=== PATIENT | male | born 1995 ===

== ENCOUNTER 2016-09-19 14:56 | Emergency (ER) | payer OTHER ==
[2016-09-19 15:04] VITALS: BMI 24.6
[2016-09-19 15:05] VITALS: BP 102/65; PULSE 68; RESP 20; TEMP 98; O2SAT 99
--- NOTE | 2016-09-19 15:45 | C.PDOC ---
History Of Present Illness 20 yo male BIBA for evaluation of diffuse Right side pain gradually developed for past 2 days after had Abilify injection. Pt reports, ' received injection to Right side of my body and pain gradually started in my Right arm and Right leg". Otherwise, pt denies fever, chills, skin changes around injection site. headache, dizziness, stiffness or weakness to Right arm and leg, denies CP, SOB , dyspnea, abd. pain, N/V, back pain, denies weakness, sensory or vascular deficits to Right arm and leg. At the time of evaluation, appears appropriate, not in any apparent distress. Pt admits, was seen yesterday at [facility] and had psychiatric evaluation, discharge with outpatient f/u with his psychiatrist. Pt gave me his psych phone number [phone]. I discussed case with behavioral health case manager, psych was not available at time. Pt has PMHx of schizophrenia, personality disorder, anger problem, (+) delusional. manager union is aware of pt's symptoms of Right side pain after the injection of Abilify. She reports, " pt called me yesterday and told me was seen at [facility] due to Right arm and Right leg pain developed after injection. I told him to return to partial care as scheduled yesterday and today- not compliant". As per behavioral health case manager, prior to start of Abilify injection, pt was place on oral Abilify for 10 days and tolerated well, no side effect noted. Pt has hx of medication non- compliance and agreed to injection form of Abilify.As per discussion with behavioral health case manager, pt is ok for discharge and outpt f/u now at partial care. Time Seen by Provider: 09/19/16 15:09 Chief Complaint (Nursing): Hip Pain History Per: Patient History/Exam Limitations: no limitations Onset/Duration Of Symptoms: Days (2) Current Symptoms Are (Timing): Still Present Past Medical History Reviewed: Historical Data, Nursing Documentation, Vital Signs Vital Signs: Last Vital Signs Temp 98.0 F 09/19/16 15:03 Pulse 68 09/19/16 15:03 Resp 20 09/19/16 15:03 BP 102/65 09/19/16 15:03 Pulse Ox 99 09/19/16 16:01 - Medical History PMH: Asthma, Schizophrenia Family History: States: No Known Family Hx - Social History Hx Alcohol Use: No Hx Substance Use: No - Immunization History Hx Tetanus Toxoid Vaccination: No Hx Influenza Vaccination: No Hx Pneumococcal Vaccination: No Review Of Systems Except As Marked, All Systems Reviewed And Found Negative. Constitutional: Positive for: Other ((+) Diffuse right sided pain). Negative for: Fever, Chills Eyes: Negative for: Vision Change ENT: Negative for: Ear Discharge Cardiovascular: Negative for: Chest Pain, Edema, Light Headedness Respiratory: Negative for: Cough, Shortness of Breath, Wheezing Gastrointestinal: Negative for: Nausea, Vomiting, Abdominal Pain Genitourinary: Negative for: Dysuria, Incontinence Musculoskeletal: Negative for: Back Pain Neurological: Negative for: Weakness, Numbness, Altered Mental Status, Headache , Dizziness Physical Exam - Physical Exam Appears: Well, Non-toxic, No Acute Distress Skin: Warm, No Rash, No Ecchymosis Head: Normacephalic Eye(s): bilateral: PERRL Nose: No Discharge Oral Mucosa: Moist, No Drooling Tongue: Normal Appearing Lips: Normal Appearing Throat: No Erythema, No Exudate, No Drooling, Other (uvula midline, no edema.) Neck: Supple Chest: Symmetrical Cardiovascular: Rhythm Regular Respiratory: No Decreased Breath Sounds, No Accessory Muscle Use, No Stridor, No Wheezing Gastrointestinal/Abdominal: Soft, No Tenderness, No Distention, No Guarding Back: No CVA Tenderness Extremity: No Pedal Edema, No Deformity Neurological/Psych: Normal Speech ED Course And Treatment O2 Sat by Pulse Oximetry: 99 Pulse Ox Interpretation: Normal Progress Note: On re-eavluation, pt is afebrile, hemodynamicaly stable. no- toxic. Appropriate, denies suicidal ideation or attempts. neurologicaly intact. Case discussed with ED attending and discharge with outpt F/U -psychiatrist recommend at this time. Discussed with patient , agrees with outpt f/u. Stable for discharge now. Medical Decision Making Medical Decision Making: PLAN: * Motrin PO Disposition Counseled Patient/Family Regarding: Diagnosis, Need For Followup - Disposition Referrals: [facility] [Outside] Disposition: HOME/ ROUTINE Disposition Time: 15:43 Condition: STABLE Additional Instructions: FOLLOW UP WITH YOUR PSYCHIATRIST IN 1-2 DAYS FOR RE-EVALUATION. RETURN TO ED IF ANY WORSENING OR NEW CHANGES. Instructions: Schizophrenia (ED), Leg Pain (ED), Arm Pain (ED) - Clinical Impression Clinical Impression: Right arm pain, Right leg pain, Schizophrenia - PA / PUBLIC HEALTH DOCTOR / Resident Statement MD/DO has reviewed & agrees with the documentation as recorded. - Scribe Statement The provider has reviewed the documentation as recorded by the Scribe Qing Singh All medical record entries made by the Scribe were at my direction and personally dictated by me. I have reviewed the chart and agree that the record accurately reflects my personal performance of the history, physical exam, medical decision making, and the department course for this patient. I have also personally directed, reviewed, and agree with the discharge instructions and disposition.
== END 2016-09-19 15:55 | disposition home or self-care (01) ==
LOC: C.ER 14:56
DX: M79.601 Pain in right arm (principal); M79.604 Pain in right leg; F20.9 Schizophrenia, unspecified

== ENCOUNTER 2016-12-17 18:07 | Emergency (ER) | payer OTHER ==
[2016-12-17 18:07] VITALS: BMI 24.6
[2016-12-17 18:16] VITALS: TEMP 97.4
[2016-12-17] MEDS ORDERED: Lidocaine 5% Patch TD STA (18:49)
[2016-12-17] MEDS ORDERED: Lidocaine 5% Patch TD ONE (18:54)
--- NOTE | 2016-12-17 19:02 | C.PDOC ---
History Of Present Illness 21 year old male presents to the ED with complaints of left upper back pain that is exacerbated by movement beginning when he awoke this morning. Patient states he used ibuprofen and unknown muscle relaxer but pain persists. He notes he was at the gym yesterday doing heavy lifting and working on back and arms. Patient states pain is non-radiating and denies SOB, chest pain. Time Seen by Provider: 12/17/16 18:41 Chief Complaint (Nursing): Upper Extremity Problem/Injury History Per: Patient History/Exam Limitations: no limitations Onset/Duration Of Symptoms: Hrs Current Symptoms Are (Timing): Still Present Quality Of Discomfort: "Pain" Associated Symptoms: None Exacerbating Factor(s): Movement Recent travel outside of the [place]: No Past Medical History Reviewed: Historical Data, Nursing Documentation, Vital Signs Vital Signs: Last Vital Signs Temp 97.4 F L 12/17/16 18:15 Pulse 72 12/17/16 19:26 Resp 18 12/17/16 19:26 BP 110/65 12/17/16 19:26 Pulse Ox 100 12/17/16 21:00 - Medical History PMH: Asthma, Schizophrenia Family History: States: Unknown Family Hx - Social History Hx Alcohol Use: No Hx Substance Use: No - Immunization History Hx Tetanus Toxoid Vaccination: No Hx Influenza Vaccination: No Hx Pneumococcal Vaccination: No Review Of Systems Constitutional: Negative for: Fever, Chills Cardiovascular: Negative for: Chest Pain Respiratory: Negative for: Cough, Shortness of Breath Gastrointestinal: Negative for: Nausea, Vomiting Musculoskeletal: Positive for: Back Pain (left upper back pain ) Neurological: Negative for: Weakness, Numbness Physical Exam - Physical Exam Appears: Non-toxic, No Acute Distress Skin: Warm, Dry Head: Atraumatic, Normacephalic Eye(s): bilateral: Normal Inspection, EOMI Oral Mucosa: Moist Neck: Supple Chest: Symmetrical, No Deformity Cardiovascular: Rhythm Regular, No Murmur Respiratory: Normal Breath Sounds, No Rales, No Rhonchi, No Wheezing Back: Muscle Spasm (left upper back scapular area ), Other (Left upper back tenderness over scapular area ) Extremity: Normal ROM, No Tenderness, Capillary Refill (good capillar refill, less than two seconds ), No Deformity, No Swelling Pulses: Left Radial: Normal Neurological/Psych: Oriented x3, Normal Speech Gait: Steady ED Course And Treatment O2 Sat by Pulse Oximetry: 100 (room air ) Pulse Ox Interpretation: Normal Progress Note: Patient was given Tylenol and Lidocaine 5%. Disposition Counseled Patient/Family Regarding: Diagnosis, Need For Followup, Rx Given - Disposition Referrals: [facility] [Medical Doctor] - Disposition: HOME/ ROUTINE Disposition Time: 19:00 Condition: STABLE Additional Instructions: Follow up with your primary medical doctor or clinic in 2-5 days for further evaluation. Take medications as prescribed. Return to the emergency department at any time if symptoms persist or worsen. Prescriptions: Ibuprofen [Motrin] 600 mg PO Q8 #30 tab Lidocaine 5% [Lidoderm] 1 ea TD DAILY #10 patch Methocarbamol [Robaxin] 500 mg PO Q8 #14 tab Instructions: Muscle Spasm (ED) Forms: [facility] (Telugu) - POA Present On Arrival: None - Clinical Impression Clinical Impression: Spasm of muscle, back - Scribe Statement The provider has reviewed the documentation as recorded by the Scribe Ruby Rose All medical record entries made by the Naylaibnilson were at my direction and personally dictated by me. I have reviewed the chart and agree that the record accurately reflects my personal performance of the history, physical exam, medical decision making, and the department course for this patient. I have also personally directed, reviewed, and agree with the discharge instructions and disposition.
[2016-12-17 19:26] VITALS: BP 110/65; PULSE 72; RESP 18
[2016-12-17 20:56] VITALS: O2SAT 100
== END 2016-12-17 19:27 | disposition home or self-care (01) ==
LOC: C.ER 18:07
DX: M62.838 Other muscle spasm (principal)

== ENCOUNTER 2017-04-14 21:26 | Emergency (ER) | payer OTHER ==
[2017-04-14 21:27] VITALS: BMI 24.6
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
[2017-04-14 22:28] LABS: BASO % 0.5 % (0.0-2.0); EOS # 0.5 K/uL (0.0-0.7); EOS % 8.4 % (0.0-4.0); HEMATOCRIT 43.9 % (35.0-51.0); LYMPH # 1.2 K/uL (1.0-4.3); LYMPH % 18.5 % (20.0-40.0); MEAN CORPUSCULAR HEMOGLOBIN 30.8 pg (27.0-31.0); MEAN CORPUSCULAR HGB CONC 35.4 g/dL (33.0-37.0); MONO # 0.3 K/uL (0.0-0.8); MONO % 4.9 % (0.0-10.0); NRBC % 0.1 % (0.0-2.0); RED CELL DISTRIBUTION WIDTH 13.3 % (11.5-14.5); WHITE BLOOD COUNT 6.5 K/uL (4.8-10.8)
[2017-04-14 22:39] LABS: ALB/GLOB RATIO 1.4 (1.0-2.1); ALCOHOL SERUM < 10 mg/dl (0-10); ALKALINE PHOSPHATASE 74 U/L (38-126); ALT/SGPT 34 U/L (21-72); AST/SGOT 28 U/L (17-59); BILIRUBIN,TOTAL 0.6 mg/dL (0.2-1.3); BLOOD UREA NITROGEN 18 mg/dL (9-20); CALCIUM 8.8 mg/dl (8.6-10.4); CARBON DIOXIDE 26 mmol/L (22-30); CHLORIDE 101 mmol/L (98-107); GFR AFRICAN-AMERICAN > 60; GLUCOSE,RANDOM 96 mg/dL (75-110); POTASSIUM 3.7 mmol/L (3.6-5.2); SODIUM 135 mmol/L (132-148); TOTAL PROTEIN 7.5 g/dL (6.3-8.3)
[2017-04-14 23:05] LABS: RBC URINE 198 /hpf (0-3); URINE BILIRUBIN NEGATIVE (NEGATIVE); URINE BLOOD 3+ (NEGATIVE); URINE COLOR Yellow (YELLOW); URINE GLUCOSE (UA) NORMAL (Normal); URINE KETONE NEGATIVE (NEGATIVE); URINE LEUKOCYTE ESTERASE NEG Leu/uL (Negative); URINE PROTEIN NEGATIVE (NEGATIVE); URINE UROBILINOGEN NORMAL mg/dL (0.2-1.0); WBC URINE 2 /hpf (0-5)
[2017-04-15 09:08] VITALS: BP 126/72; PULSE 66; RESP 16; TEMP 97.6
[2017-04-15 09:09] VITALS: O2SAT 97
== END 2017-04-15 09:10 | disposition home or self-care (01) ==
LOC: C.ER 21:26
DX: Z00.8 Encounter for other general examination (principal); F20.9 Schizophrenia, unspecified

== ENCOUNTER 2018-05-01 21:31 | Emergency (ER) | payer OTHER ==
[2018-05-01 21:32] VITALS: BMI 24.6
[2018-05-01 21:49] VITALS: RESP 20
[2018-05-01] MEDS ORDERED: Albuterol-Ipratrop 3 mg / 0.5 (3 ml) UD INH STA (22:02)
--- NOTE | 2018-05-01 22:03 | C.PDOC ---
History Of Present Illness 22 year old male presents to the ER with a complaint of sharp left sided chest pain for the past 2 days. He was seen [place] [facility] [place], had a negative CXR and sent home with meds. Patient reportedly went back to [facility] because he did not want to wait. Denies any other symptoms. Time Seen by Provider: 05/01/18 21:43 Chief Complaint (Nursing): Chest Pain History Per: Patient History/Exam Limitations: no limitations Onset/Duration Of Symptoms: Days Current Symptoms Are (Timing): Still Present Quality: Sharp Associated Symptoms: denies: Nausea, Dyspnea, Diaphoresis, Syncope Alleviating Factors: None Recent travel outside of the [place]: No Past Medical History Reviewed: Historical Data, Nursing Documentation, Vital Signs Vital Signs: Last Vital Signs Temp 98.1 F 05/01/18 21:43 Pulse 79 05/01/18 21:43 Resp 20 05/01/18 21:43 BP 128/71 05/01/18 21:43 Pulse Ox 96 05/01/18 21:43 - Medical History PMH: Asthma, Schizophrenia Denies: Diabetes, Hepatitis, HIV, HTN, Seizures, Sexually Transmitted Disease Family History: States: Unknown Family Hx - Social History Hx Alcohol Use: No Hx Substance Use: No - Immunization History Hx Tetanus Toxoid Vaccination: No Hx Influenza Vaccination: No Hx Pneumococcal Vaccination: No Review Of Systems Constitutional: Negative for: Fever, Chills Cardiovascular: Positive for: Chest Pain. Negative for: Palpitations Respiratory: Negative for: Cough, Shortness of Breath Gastrointestinal: Negative for: Nausea, Vomiting Neurological: Negative for: Weakness, Numbness Physical Exam - Physical Exam Appears: Non-toxic, No Acute Distress, Other (On his cell phone) Skin: Normal Color, Warm, Dry Head: Atraumatic, Normacephalic Eye(s): bilateral: Normal Inspection Oral Mucosa: Moist Chest: Tenderness (Left sided) Cardiovascular: Rhythm Regular Respiratory: No Rales, No Rhonchi, Wheezing (Scattered) Gastrointestinal/Abdominal: Soft, No Tenderness Extremity: Normal ROM (x4) Neurological/Psych: Oriented x3, Normal Speech ED Course And Treatment - Laboratory Results Result Diagrams: 05/01/18 23:01 05/01/18 23:01 ECG: Interpreted By Me, Viewed By Me ECG Rhythm: Sinus Rhythm ECG Interpretation: Normal Interpretation Of ECG: No ST/T wave changes, PERC negative Rate From EC O2 Sat by Pulse Oximetry: 96 (Room air) Pulse Ox Interpretation: Normal Medical Decision Making Medical Decision Making: cp ro pneumo pna anemia. mild asthma. CXR and EKG ordered. Duoneb, tylenol, and prednisone administered. labs neg. perc neg. on phone in nad. cxr neg. advise outpt fu. wheezing resolved. pt has nebs at home. dc with prednisone. Disposition - Disposition Referrals: [facility] [Outside] [facility] [Outside] Enrique Carlton MD [Staff Provider] - Disposition: HOME/ ROUTINE Disposition Time: 23:00 Condition: STABLE Additional Instructions: please follow up with your doctor/clnic. return to er with worsening symptoms or concersn. Prescriptions: RX: Prednisone 50 mg PO DAILY #5 tab Instructions: Chest Pain, Asthma, Adult (DC) Forms: [employer] (Macedonian) - Clinical Impression Clinical Impression: Asthma - Scribe Statement The provider has reviewed the documentation as recorded by the Scribnilson Riley All medical record entries made by the Scribe were at my direction and personally dictated by me. I have reviewed the chart and agree that the record accurately reflects my personal performance of the history, physical exam, medical decision making, and the department course for this patient. I have also personally directed, reviewed, and agree with the discharge instructions and disposition.
[2018-05-01] MEDS ORDERED: Albuterol-Ipratrop 3 mg / 0.5 (3 ml) UD ONE (22:45)
[2018-05-01 23:04] LABS: BASO # 0.1 K/uL (0.0-0.2); BASO % 0.8 % (0.0-2.0); EOS # 0.2 K/uL (0.0-0.7); EOS % 3.5 % (0.0-4.0); HEMOGLOBIN 14.8 g/dL (12.0-18.0); LYMPH # 2.2 K/uL (1.0-4.3); LYMPH % 32.7 % (20.0-40.0); MEAN CELL VOLUME 90.1 fL (80.0-94.0); MEAN CORPUSCULAR HEMOGLOBIN 30.9 pg (27.0-31.0); MEAN CORPUSCULAR HGB CONC 34.3 g/dL (33.0-37.0); MONO # 0.5 K/uL (0.0-0.8); MONO % 7.9 % (0.0-10.0); NEUT # 3.7 K/uL (1.8-7.0); NEUT % 55.1 % (50.0-75.0); RBC 4.78 Mil/uL (4.40-5.90); WHITE BLOOD COUNT 6.7 K/uL (4.8-10.8)
[2018-05-01 23:12] LABS: INR 1.1; PROTHROMBIN TIME 11.6 SECONDS (9.7-12.2)
[2018-05-01 23:19] LABS: ALB/GLOB RATIO 1.5 (1.0-2.1); ALBUMIN 4.3 g/dL (3.5-5.0); ALT/SGPT 29 U/L (21-72); AST/SGOT 26 U/L (17-59); BLOOD UREA NITROGEN 13 mg/dL (9-20); CALCIUM 9.7 mg/dl (8.6-10.4); GFR NON-AFRICAN AMERICAN > 60
[2018-05-01 23:36] VITALS: BP 121/78; PULSE 88; TEMP 98
[2018-05-02 00:05] VITALS: O2SAT 96
--- NOTE | 2018-05-02 09:11 | RAD ---
Date of service: 05/01/2018 HISTORY: Chest pain COMPARISON: No prior. TECHNIQUE: Chest PA and lateral FINDINGS: LINES AND TUBES: None. LUNG AND PLEURA: The lungs are well inflated and clear. No pleural effusion or pneumothorax. HEART AND MEDIASTINUM: The heart is not enlarged. No aortic atherosclerotic calcifications present. The hilar and mediastinal contours are within normal limits. SKELETAL STRUCTURES: The bony structures are within normal limits for the patient's age. VISUALIZED UPPER ABDOMEN: Normal. OTHER FINDINGS: None. IMPRESSION: No active pulmonary disease.
== END 2018-05-01 23:36 | disposition home or self-care (01) ==
LOC: C.ER 21:31
DX: J45.909 Unspecified asthma, uncomplicated (principal)